=== PATIENT | male | born 1995 | race Caucasian/White ===

== ENCOUNTER 2018-09-24 16:24 | Emergency (ER) | payer BC, MEDICAID ==
[~2018-09-24] VITALS: Ht 172.7 cm; Wt 82.0 kg
[2018-09-24] MEDS ORDERED: IBUPROFEN 600MG TABLET PO ONE (21:15)
[2018-09-24 21:45] VITALS: BP 113/86
== END 2018-09-24 21:44 | disposition home or self-care (01) ==
LOC: ER 16:24
DX: S60.051A Contusion of right little finger without damage to nail, initial encounter (principal); X58.XXXA Exposure to other specified factors, initial encounter; Y93.89 Activity, other specified; Y92.89 Other specified places as the place of occurrence of the external cause; Y99.8 Other external cause status
CPT/HCPCS: 73140; 99283